=== PATIENT | male | born 1990 | race Caucasian/White ===

== ENCOUNTER 2023-04-10 14:51 | Outpatient (REF) | payer OTHER, SELFPAY ==
[2023-04-10 16:16] LABS: Influenza A PCR NEGATIVE (Negative); Influenza B PCR NEGATIVE (Negative); Resp Syncy Virus RNA Qual PCR NEGATIVE (Negative); SARS COV2 PCR INHOUSE NEGATIVE (Negative)
== END 2023-04-10 14:52 | disposition home or self-care (01) ==
LOC: HO.LAB 14:51
PROVIDERS: Visit Provider Physician Assistant Medical
DX: R05.9 Cough, unspecified (principal); Z20.822 Contact with and (suspected) exposure to COVID-19
CPT/HCPCS: 0241U

== ENCOUNTER 2024-01-29 08:28 | Outpatient (REF) | payer BC, SELFPAY ==
[2024-01-29 10:01] LABS: Syphilis Screen Nonreactive (Nonreactive)
[2024-01-29 10:06] LABS: HBS Num1 410.65 mIU/mL (0-7.99); HBc Num1 0.14 S/CO (0.00-0.79); HBsAGNum1 0.34 S/CO (0.00-0.99); HIV AB/AG Nonreactive (Nonreactive); HIV Num 1 0.05 S/CO (0.00-0.99); Hepatitis A Antibody IgM 0.17 Index (0-0.79); Hepatitis B Core Antibody Nonreactive (Nonreactive); Hepatitis B Surface Antigen Negative (Negative); ~HepC Num1 0.14 S/CO (0.00-0.79); ~Hepatitis A Antibody IgM Nonreactive (Nonreactive); ~Hepatitis B Surface Antibody REACTIVE (Nonreactive); ~Hepatitis C Antibody Nonreactive (Nonreactive)
[2024-01-29 13:44] LABS: CT PCR NOT DETECTED (Not Detect.); NG PCR NOT DETECTED (Not Detect.)
== END 2024-01-29 08:29 | disposition home or self-care (01) ==
LOC: HO.LAB 08:28
PROVIDERS: PCP Internal Medicine; Visit Provider Internal Medicine
DX: Z20.2 Contact with and (suspected) exposure to infections with a predominantly sexual mode of transmission (principal)
CPT/HCPCS: 0353U; 86704; 86706; 86709; 86780; 86803; 87340; 87389

== ENCOUNTER 2024-03-06 10:52 | Outpatient (AMB) | payer BC, SELFPAY ==
[2024-03-06 10:54] VITALS: BP 130/68; BMI 24.1
--- NOTE | 2024-03-06 10:54 | MHC.PC.OV ---
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 He denies any chest pain or shortness of breath. No fever or cough. [facility] History (Updated 03/06/24 @ 11:17 by Mei Ryan MD) Lumbar pain MAYTE (generalized anxiety disorder) Seborrheic dermatitis of scalp Ear pain Surgical History No pertinent past surgical history Family History Mother Essential hypertension Father No problems noted. Social History Housing: House Alcohol intake: current Alcohol intake frequency: a few times a month Alcohol type: beer, wine and hard liquor Patient Tobacco Use Status: Never used Tobacco e-Cigarette/Vaping Use: Never Used Second Hand Smoke Exposure: No service: No Current occupational status: employed Current occupational exposures/hazards: No Cognitive needs: No Hearing needs: No Vision needs: Yes Questionnaire PHQ-9 Over the last 2 weeks, how often have you been bothered by any of the following problems? 1. Little interest or pleasure in doing things: not at all 2. Feeling down, depressed, or hopeless: not at all 3. Trouble falling or staying asleep, or sleeping too much: not at all 4. Feeling tired or having little energy: not at all 5. Poor appetite or overeating: not at all 6. Feeling bad about yourself - or that you are a failure or have let yourself or your family down: not at all 7. Trouble concentrating on things, such as reading the newspaper or watching television: not at all 8. Moving or speaking so slowly that other people could have noticed. Or the opposite - being so fidgety or restless that you have been moving around a lot more than usual: not at all 9. Thoughts that you would be better off or of hurting yourself in some way: not at all Total score: 0 Depression Screening Interpretation: Negative Depression Screening Done: Yes 69591 - PHQ-9 Billing: Yes Source: Developed by Drs. Rakesh Cerrato, Arleth Lowe, Juan Jose Yun and colleagues, with an educational sondra from [employer]. Thrive Questionnaire Date Thrive assessed: 03/06/24 I am a: Patient What is your living situation today?: I have a steady place to live Within the past 12 months, did the food you bought not last and you didn't have the money to get more?: Never true Within the past 12 months, did you worry whether your food would run out before you got money to buy more?: Never true Do you have trouble paying for medicines?: No Do you have trouble getting transportation to medical appointments?: No Do you have trouble paying your heating and electricity bill?: No Do you have trouble taking care of your child, family member or friend?: No Do you have trouble with day-to-day activities such as bathing, preparing meals, shopping, managing finances, etc.?: No Are you currently unemployed and looking for a job?: No Are you interested in more education?: No Please select the resources that you would like help with: None Currently or been in a relationship where the following occur: no concerns reported THRIVE Score: 0 AUDIT C Alcohol Use Questionnaire (AUDIT-C) 1. How often do you have a drink containing alcohol?: Monthly or less 2. How many drinks containing alcohol do you have on a typical day when you are drinking?: 1 or 2 3. How often do you have six or more drinks on one occasion?: Never Total Score: 1 MAYTE-7 AMB Questionnaire MAYTE-7 Date MAYTE - 7 assessed: 03/06/24 Feeling nervous, anxious, or on edge: 0 = Not at all Not being able to stop or control worryin = Not at all Worrying too much about different things: 0 = Not at all Trouble relaxin = Not at all Being so restless that it is hard to sit still: 0 = Not at all Becoming easily annoyed or irritable: 0 = Not at all Feeling afraid as if something awful might happen: 0 = Not at all Total MAYTE-7 score (0-4 normal; 5-9 mild; 10-14 moderate; 15-21 severe): 0 Source: Developed by Drs. Rakesh Cerrato, Arleth Lowe, Juan Jose Yun and colleagues, with an educational sondra from [employer]. MAYTE-7 Assessment Billing MAYTE-7 Assessment Tool: MAYTE-7 Assessment 54697 Review of Systems Const All systems reviewed & are unremarkable except as noted in HPI and below Eyes Reports no additional complaints, Denies change in vision and Denies other visual disturbances Card Denies chest pain at rest, Denies chest pain with activity, Denies edema, Denies irregular heart rhythm, Denies claudication, Denies dyspnea, Denies dyspnea on exertion, Denies orthopnea, Denies paroxysmal nocturnal dyspnea and Denies slow heart rate Resp Denies cough, Denies dyspnea and Denies dyspnea on exertion Physical exam (Primary Care) Vital Signs: Last Vital Signs BP 130/68 03/06/24 10:54 BMI result Body Mass Index 24.1 Tobacco/Smoking Status: Tobacco use Status Tobacco use date assessed 03/06/24 03/06/24 11:00 Patient Tobacco Use Status Never used Tobacco 03/06/24 11:00 e-Cigarette/Vaping Use Never Used 03/06/24 11:00 PHQ-9: PHQ-9 Score PHQ-9: Total score 0 03/06/24 11:00 Depression Screening Interpretation: Negative Thrive Assessment: Date of Thrive Assessment Date Thrive assessed 03/06/24 03/06/24 11:00 Currently or been in a relationship where the following occur: no concerns reported Const Orientation/consciousness: patient oriented x3 HENMT Head: Yes normal to inspection, Yes normocephalic and Yes atraumatic Ears: external ears normal Eyes General: appearance normal, both eyes and all related structures Eyelids: Yes eyelids normal Conjunctivae: conjunctivae normal Neck Neck: Yes normal visual inspection and Yes supple Resp Effort & Inspection: normal respiratory effort Auscultation: clear to auscultation bilaterally Cardio Jugular venous distension: no JVD Rate: regular rate Rhythm: regular rhythm Heart sounds: S1 normal heart sound present and S2 normal heart sound present GI Inspection: Yes normal to inspection Palpation (GI): Soft to palpation and nontender Auscultation: normal bowel sounds Skin General skin exam: no rashes or lesions noted Neuro General: patient oriented x3 and no focal motor deficits Extrem General: Yes full ROM Psych Appearance: grossly normal Assessment and Plan Assessment & Plan (1) Physical exam: Code(s): Z00.00 - Encounter for general adult medical examination without abnormal findings Plan: Repeat in a year. Orders: Orders T Spot TB Today Z11.1 - Encounter for screening for respiratory tuberculosis Lipid Panel Today Z00.00 - Encounter for general adult medical examination without abnormal findings Rubella IgG Antibody Today Z23 - Encounter for immunization Comprehensive [place]. Panel Fast Today Z00.00 - Encounter for general adult medical examination without abnormal findings Mumps Virus IgG Antibody Today Z23 - Encounter for immunization Rubeola IgG (Measles) Today Z23 - Encounter for immunization Coding Level of Care Code Est Pt Prev Care 18-39y(60921) Diagnoses Physical exam Z00.00 Additional Codes MAYTE-7 Assessment Billing - MAYTE-7 Assessment Tool: MAYTE-7 Assessment 72317 ([id number]) Time Spent (min) 30
== END 2024-03-06 11:25 | disposition home or self-care (01) ==
PROVIDERS: PCP Internal Medicine; Visit Provider Internal Medicine
DX: Z00.00 Encounter for general adult medical examination without abnormal findings (principal)
CPT/HCPCS: 99395

== ENCOUNTER 2024-03-07 09:44 | Outpatient (REF) | payer BC, SELFPAY ==
[2024-03-07 11:05] LABS: Alanine Aminotransferase 20 U/L (0-40); Albumin Level 4.2 g/dL (3.5-5.0); Alkaline Phosphatase 58 U/L (39-117); Anion Gap 12 (12-20); Aspartate Amino Transferase 21 U/L (5-37); Bilirubin Total 0.8 mg/dL (0.0-1.0); Blood Urea Nitrogen 13 mg/dL (9-16); Calcium 9.5 mg/dL (8.4-10.2); Carbon Dioxide 27 mmol/L (22-29); Chloride 104 mmol/L (96-108); Cholesterol 206 mg/dL (<200); Estimated Glomerular Filt Rate > 60; Glucose Fasting 97 mg/dL (60-99); HDL Cholesterol 47 mg/dL (>40); LDL Cholesterol Calculated 133 mg/dL (<100); Potassium 4.2 mmol/L (3.3-5.1); Sodium 139 mmol/L (135-145); Total Protein 7.4 g/dL (6.5-8.0); Triglycerides 132 mg/dL (<150)
[2024-03-08 10:48] LABS: Rubeola IgG (Measles) <13.50 AU/mL
[2024-03-08 10:54] LABS: Rubella IgG Antibody 1.68 Index
[2024-03-09 22:39] LABS: TS Negative Control Passed; TS Panel A 0; TS Panel B 0; TS Positive Control Passed; TSpotTB Negative (Negative)
== END 2024-03-07 09:45 | disposition home or self-care (01) ==
LOC: HO.LAB 09:44
PROVIDERS: PCP Internal Medicine; Visit Provider Internal Medicine
DX: Z00.00 Encounter for general adult medical examination without abnormal findings (principal); Z11.1 Encounter for screening for respiratory tuberculosis; Z13.6 Encounter for screening for cardiovascular disorders
CPT/HCPCS: 36415; 80053; 80061; 86481; 86735; 86762; 86765

== ENCOUNTER 2024-03-15 14:48 | Outpatient (AMB) | payer BC, SELFPAY ==
--- NOTE | 2024-03-15 15:08 | AM.OFFVISNUR ---
Intake Intake Visit Reasons: MMR Allergies No Known Allergies Allergy (Verified 03/06/24 11:07) Immunizations M-M-R II (PF) 1,000-12,500 TCID50/0.5 mL subcutaneous solution Performing Provider: Mei Ryan MD Performing Location: [facility] Administered by: Miriam Noriega RN on 03/15/24 15:24 Dose Route Admin Location Dispensed Lot Number Expiration Date NDC Lead Project Manager 0.5 mL subcut Left Arm 0.5 mL [id number] 02/02/25 7152-4325-79 [employer] D VIS Given Date VIS Provided VIS Publication Date 03/15/24 Single Vaccine 21 Eligibility Eligibility Date Funding Source Not [facility] Eligible 03/15/24 Private Coding Assessment & Plan Assessment & Plan Orders: Orders MMR Immunization Today Z23 - Encounter for immunization Medications: New M-M-R II (PF) (measles,mumps,rubella vacc(PF)) 0.5 mL subcut ONCE 1 ea 0RF NS Z23 - Encounter for immunization
== END 2024-03-15 15:23 | disposition home or self-care (01) ==
PROVIDERS: PCP Internal Medicine; Visit Provider Internal Medicine
DX: Z23 Encounter for immunization (principal)
CPT/HCPCS: 90471; 90707

== ENCOUNTER 2024-04-20 14:21 | Outpatient (AMB) | payer BC, SELFPAY ==
--- NOTE | 2024-04-20 14:55 | AM.OFFVISNUR ---
Intake Intake Visit Reasons: MMR Allergies No Known Allergies Allergy (Verified 03/06/24 11:07) Immunizations M-M-R II (PF) 1,000-12,500 TCID50/0.5 mL subcutaneous solution Performing Provider: Mei Ryan MD Performing Location: [facility] Administered by: Venecia Cole RN on 04/20/24 14:56 Dose Route Admin Location Dispensed Lot Number Expiration Date NDC Taxi Proprietor 0.5 mL subcut Left Arm 0.5 mL [id number] 02/02/25 7481-7068-64 [employer] D VIS Given Date VIS Provided VIS Publication Date 04/20/24 Single Vaccine 21 Eligibility Eligibility Date Funding Source Not [facility] Eligible 04/20/24 Private Coding Assessment & Plan Assessment & Plan Orders: Orders MMR Immunization Today Z23 - Encounter for immunization Medications: New M-M-R II (PF) (measles,mumps,rubella vacc(PF)) 0.5 mL subcut ONCE 1 ea 0RF NS Z23 - Encounter for immunization
== END 2024-04-20 15:16 | disposition home or self-care (01) ==
PROVIDERS: PCP Internal Medicine; Visit Provider Internal Medicine
DX: Z23 Encounter for immunization (principal)
CPT/HCPCS: 90471; 90707

== ENCOUNTER 2024-08-21 15:01 | Outpatient (AMB) | payer BC, SELFPAY ==
--- NOTE | 2024-08-21 15:32 | AM.OFFWIN_ITS ---
Intake Vital Signs 08/21/24 15:34 Height 5 ft 9 in Weight 175 lb 4 oz BMI 25.9 BP 102/78 Blood Pressure Location Rt brachial Position Sitting Pulse 78 Pulse Source Pulse Oximeter Pulse Oximetry (%) 98 Oxygen Delivery Method Room Air Intake Visit Reasons: EP Feels pain on his mid thoracic spine Intake Note: Patient is here today for work injury visit complaint of pain in left hip. 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 While every effort has been made to ensure accuracy, pick up and delivery driver errors may have been included. The patient is a 33 year old male who presents to the clinic today with Left lower back pain since today at work. He reports that he was looking in the bucket for a tool, and when he went to sit up and stand up he felt pain in his left lower back. He denies numbness and tingling in his leg, the walking. He does note that the pain is worse if he is going from sitting to standing. He did not take anything to help the pain. He has not had any previous back injury or surgery. REPLACED BY [facility] Medical History Lumbar pain MAYTE (generalized anxiety disorder) Seborrheic dermatitis of scalp Ear pain Surgical History No pertinent past surgical history Family History Mother Essential hypertension Father No problems noted. Social History Housing: House Alcohol intake: current Alcohol intake frequency: a few times a month Alcohol type: beer, wine and hard liquor Patient Tobacco Use Status: Never used Tobacco e-Cigarette/Vaping Use: Never Used Second Hand Smoke Exposure: No service: No Current occupational status: employed Current occupational exposures/hazards: No Cognitive needs: No Hearing needs: No Vision needs: Yes Review of Systems Const All systems reviewed & are unremarkable except as noted in HPI and below Physical Exam Vital Signs: Last Vital Signs Pulse 78 08/21/24 15:34 BP 102/78 08/21/24 15:34 Pulse Ox 98 08/21/24 15:34 Oxygen Delivery Method Room Air 08/21/24 15:34 BMI result Body Mass Index 25.9 Const General: cooperative, healthy appearing, comfortable, no acute distress and alert Orientation/consciousness: patient oriented x3 Limitations: no limitations Resp Effort & Inspection: normal respiratory effort and able to speak in complete sentences Back/Spine/Pelvis Other: Left lumbar region tender to palpation, no increased muscle bulging. No pain over spine. Reduced flexion due to pain, lateral rotation normal. Distal neurovascular exam intact, negative SLR, negative well SLR. Skin General skin exam: no rashes or lesions noted, elasticity normal and turgor normal Neuro General: patient oriented x3 Extrem General: Yes normal to inspection, Yes full ROM, Yes capillary refill normal and Yes normal exam except as noted Psych Appearance: grossly normal Mental Status: mental status grossly normal Speech and movement: Normal speech and movement present Affect: normal affect Assessment & Plan Assessment & Plan (1) Low back pain: Code(s): M54.50 - Low back pain, unspecified Qualifiers: Chronicity: acute Back pain laterality: left Sciatica presence: without sciatica Qualified Code(s): M54.50 - Low back pain, unspecified Plan: Supportive measures encouraged and reviewed. Advised patient to try ibuprofen for anti-inflammatory effects as well as muscle relaxer for spasming muscle. Trial heat or ice. Letter provided for time off of work for 2 days to rest and due to concern for side effects of medication. Advised follow up with worsening or failure to resolve. Plan See above for full details and plan. Medications: New cyclobenzaprine 5 mg PO TID PRN 6 tabs 0RF muscle spasm ibuprofen 600 mg PO Q8H PRN 10 tabs 0RF pain Coding Level of Care Code Est Pt Level 3 (26801) Diagnoses Acute left-sided low back pain without sciatica M54.50 Chronicity: acute Back pain laterality: left Sciatica presence: without sciatica
[2024-08-21 15:34] VITALS: BP 102/78; PULSE 78; O2SAT 98; BMI 25.9
== END 2024-08-21 16:16 | disposition home or self-care (01) ==
PROVIDERS: PCP Internal Medicine; Visit Provider Registered Nurse
DX: M54.50 Low back pain, unspecified (principal)

== ENCOUNTER → 2024-08-21 15:01 | Outpatient (BNVA) | payer BC, SELFPAY | PROVIDERS: PCP Internal Medicine ==

== ENCOUNTER 2024-10-31 10:02 | Outpatient (AMB) | payer OTHER, BC, SELFPAY ==
[2024-10-31 11:05] VITALS: BP 118/80; PULSE 78; TEMP 36.6; O2SAT 98; BMI 25.7
--- NOTE | 2024-10-31 11:05 | MHC.OFFWIV ---
Intake Vital Signs 10/31/24 11:05 Height 5 ft 9 in Weight 174 lb BMI 25.7 BP 118/80 Blood Pressure Location Rt brachial Position Sitting Pulse 78 Pulse Source Pulse Oximeter Temp 97.9 F Temp Source Oral Pulse Oximetry (%) 98 Intake Visit Reasons: EP Back pain ~ WC Intake Note: pt is here for back pain, WC Patient Tobacco Use Status: Never used Tobacco Allergies No Known Allergies Allergy (Verified 10/31/24 11:05) Do you need a note to return to daycare/school/sports/work: Yes HPI HPI Comments History of Present Illness Details This is a 34-year-old male with no stated past medical history presenting for evaluation of back pain that started yesterday at work. 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 The patient states he opened a box of solar panels yesterday and they were sliding out of the box. Patient states he had to use his full body to hold the solar panels to prevent them from falling to the ground. Patient states that he had pain in his upper back that persists today. Patient states that he went to work this morning however twisting motions are most bothersome to him and he was asked to come for medical evaluation. Patient has not taken any medication for treatment of his discomfort. He denies having any chest pain, abdominal pain or low back pain. Pain is aching in nature and does not radiate into his shoulders or upper extremities. [facility] Medical History Lumbar pain MAYTE (generalized anxiety disorder) Seborrheic dermatitis of scalp Ear pain Surgical History No pertinent past surgical history Family History Mother Essential hypertension Father No problems noted. Social History Housing: House Alcohol intake: current Alcohol intake frequency: a few times a month Alcohol type: beer, wine and hard liquor Patient Tobacco Use Status: Never used Tobacco e-Cigarette/Vaping Use: Never Used Second Hand Smoke Exposure: No service: No Current occupational status: employed Current occupational exposures/hazards: No Cognitive needs: No Hearing needs: No Vision needs: Yes Review of Systems Const All systems reviewed & are unremarkable except as noted in HPI and below Denies chills and Denies fever(s) Eyes Reports no additional complaints ENT Reports no additional complaints Card Reports no additional complaints, Denies chest pain and Denies dyspnea Resp Denies dyspnea GI Reports no additional complaints Reports no additional complaints Musc Reports no additional complaints, Reports back pain and Denies radiating pain into limb Skin/Breast Reports system reviewed and no additional complaints, except as documented Neuro Reports no additional complaints Psych Reports no additional complaints Physical Exam Vital Signs: Last Vital Signs Temp 97.9 F 10/31/24 11:05 Pulse 78 10/31/24 11:05 BP 118/80 10/31/24 11:05 Pulse Ox 98 10/31/24 11:05 BMI result Body Mass Index 25.7 Const General: cooperative, healthy appearing, comfortable, no acute distress, well developed, alert, awake and Physically active; No lethargic Nutritional Appearance: average body habitus Orientation/consciousness: patient oriented x3 and No lethargic Limitations: no limitations Back/Spine/Pelvis Cervical Spine: No cervical muscular tenderness, No pain with cervical ROM and No Cervical spine tenderness Thoracic/Lumbar Spine: thoracic and lumbar spine normal to inspection, paraspinal muscle tenderness (upper thoracic/rhomboid musculature bilaterally) bilaterally, No thoracic spinal tenderness and No lumbar spinal tenderness Skin General skin exam: no rashes or lesions noted Neuro General: patient oriented x3 Extrem Other: Basic Sciences Professor strength is equal bilaterally, patient ambulating independently without ataxia Psych Appearance: grossly normal Mental Status: mental status grossly normal Insight: Good insight present (Psych) Judgement: Good judgement present (Psych) Assessment & Plan Assessment & Plan (1) Rhomboid muscle strain: Comment: Patient has no decreased strength in his upper extremities bilaterally. Patient will be treated with anti-inflammatories. Code(s): S29.012A - Strain of muscle and tendon of back wall of thorax, initial encounter Qualifiers: Encounter type: initial encounter Qualified Code(s): S29.012A - Strain of muscle and tendon of back wall of thorax, initial encounter Plan: Naprosyn 500 mg b.i.d. times 10 days; patient is placed on light duty for the remainder of this week. May return to full duty on WednesdayNovember 06. Medications: New naproxen (Naprosyn) 500 mg PO BID 20 tabs 0RF Coding Level of Care Code New Pt Level 3 (45785) Diagnoses Strain of rhomboid muscle, initial encounter S29.012A Encounter type: initial encounter
== END 2024-10-31 11:21 | disposition home or self-care (01) ==
PROVIDERS: PCP Internal Medicine; Visit Provider Physician Assistant
DX: S29.012A Strain of muscle and tendon of back wall of thorax, initial encounter (principal)

== ENCOUNTER → 2024-10-31 10:02 | Outpatient (BNVA) | payer OTHER, BC, SELFPAY | PROVIDERS: PCP Internal Medicine; Visit Provider Physician Assistant | DX: S29.012A Strain of muscle and tendon of back wall of thorax, initial encounter (principal); X58.XXXA Exposure to other specified factors, initial encounter; Y93.9 Activity, unspecified; Y92.9 Unspecified place or not applicable; Y99.9 Unspecified external cause status | CPT/HCPCS: 99202 ==

== ENCOUNTER 2025-03-13 07:28 | Outpatient (AMB) | payer BC, SELFPAY ==
--- NOTE | 2025-03-13 07:40 | A.OFFPC_ITS ---
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 Accompanied by: Self / Same As Patient Allergies No Known Allergies Allergy (Verified 03/13/25 07:48) Medication List - Last Reconciled 03/13/25 by Mei Ryan MD No Known Home Meds Tobacco use date assessed: 03/13/25 Dental Screening Dental Screen Date: 03/13/25 Did you have a dental visit in the last 12 months?: Yes Did you have a dental problem in the last 6 months where you did not have access to dental care?: No Was dental information given to patient?: Patient has dentist HPI HPI Comments History of Present Illness Details The patient is a 34-year-old male presenting for an annual physical exa mination. He has a history of hyperlipidemia, with previous lab results indicating mildly elevated cholesterol levels, which did not require medication. The patient has not altered his diet since those results. His weight has decreased from 174 to 165 pounds, partly due to occasional gym workouts and reduced alcohol intake. The patient also reports episodic lower back pain that occurs infrequently, most recently about seven months ago. The pain is localized to the lower back and does not radiate. An episode resulted from lifting at work, limiting his mobility temporarily. He manages these episodes with ice but seeks further evaluation. - Immunizations are up-to-date, with Tet anus, Diphtheria, and Pertussis (Tdap) vaccine administered in 2021. - Discussed the patient's cholesterol, w hich was slightly elevated from last screening. - Recommended repeat laboratory evaluati on including blood sugar, renal function, liver enzymes, and lipid profile. - Discussed maintaining a healthy body w eight through diet and exercise. PFSH Medical History Lumbar pain MAYTE (generalized anxiety disorder) Seborrheic dermatitis of scalp Ear pain Surgical History No pertinent past surgical history Family History Mother Essential hypertension Father No problems noted. Social History Housing: House Alcohol intake: current Alcohol intake frequency: a few times a month Alcohol type: beer, wine and hard liquor Patient Tobacco Use Status: Never used Tobacco e-Cigarette/Vaping Use: Never Used Second Hand Smoke Exposure: No service: No Current occupational status: employed Current occupational exposures/hazards: No Cognitive needs: No Hearing needs: No Vision needs: Yes Questionnaire PHQ-9 Over the last 2 weeks, how often have you been bothered by any of the following problems? 1. Little interest or pleasure in doing things: not at all 2. Feeling down, depressed, or hopeless: not at all 3. Trouble falling or staying asleep, or sleeping too much: not at all 4. Feeling tired or having little energy: not at all 5. Poor appetite or overeating: not at all 6. Feeling bad about yourself - or that you are a failure or have let yourself or your family down: not at all 7. Trouble concentrating on things, such as reading the newspaper or watching television: not at all 8. Moving or speaking so slowly that other people could have noticed. Or the opposite - being so fidgety or restless that you have been moving around a lot more than usual: not at all 9. Thoughts that you would be better off or of hurting yourself in some way: not at all Total score: 0 Depression Screening Interpretation: Negative Depression Screening Done: Yes 54395 - PHQ-9 Billing: Yes Source: Developed by Drs. Rakesh Cerrato, Arleth Lowe, Juan Jose Yun and colleagues, with an educational sondra from [employer]. Thrive Questionnaire Date Thrive assessed: 03/13/25 I am a: Patient What is your living situation today?: I have a steady place to live Within the past 12 months, did the food you bought not last and you didn't have the money to get more?: Never true Within the past 12 months, did you worry whether your food would run out before you got money to buy more?: Never true Do you have trouble paying for medicines?: Yes Do you have trouble getting transportation to medical appointments?: No Do you have trouble paying your heating and electricity bill?: No Do you have trouble taking care of your child, family member or friend?: No Do you have trouble with day-to-day activities such as bathing, preparing meals, shopping, managing finances, etc.?: No Are you currently unemployed and looking for a job?: No Are you interested in more education?: Yes Please select the resources that you would like help with: None Currently or been in a relationship where the following occur: No concerns reported THRIVE Score: 0 AUDIT C Alcohol Use Questionnaire (AUDIT-C) 1. How often do you have a drink containing alcohol?: Monthly or less 2. How many drinks containing alcohol do you have on a typical day when you are drinking?: 1 or 2 3. How often do you have six or more drinks on one occasion?: Never Total Score: 1 Score Reviewed/Action Taken: No MAYTE-7 AMB Questionnaire MAYTE-7 Date MAYTE - 7 assessed: 03/13/25 Feeling nervous, anxious, or on edge: 0 = Not at all Not being able to stop or control worryin = Not at all Worrying too much about different things: 0 = Not at all Trouble relaxin = Not at all Being so restless that it is hard to sit still: 0 = Not at all Becoming easily annoyed or irritable: 0 = Not at all Feeling afraid as if something awful might happen: 0 = Not at all Total MAYTE-7 score (0-4 normal; 5-9 mild; 10-14 moderate; 15-21 severe): 0 Source: Developed by Drs. Rakesh Cerrato, Arleth Lowe, Juan Jose Yun and colleagues, with an educational sondra from [employer]. MAYTE-7 Assessment Billing MAYTE-7 Assessment Tool: MAYTE-7 Assessment 08931 Review of Systems Const All systems reviewed & are unremarkable except as noted in HPI and below Card Denies chest pain at rest, Denies chest pain with activity, Denies edema, Denies irregular heart rhythm, Denies claudication, Denies dyspnea, Denies dyspnea on exertion, Denies orthopnea, Denies paroxysmal nocturnal dyspnea and Denies slow heart rate Resp Denies cough, Denies dyspnea and Denies dyspnea on exertion GI Denies abdominal pain, Denies change in bowel habits, Denies excessive flatus, Denies nausea and Denies vomiting Denies urinary hesitancy, Denies urinary incontinence and Denies urinary urgency Musc Denies abnormal gait, Denies atrophy, Denies deformity and Denies limited range of motion Skin/Breast Denies bleeding lesions, Denies changing lesions and Denies rash Neuro Denies abnormal gait, Denies behavioral changes and Denies lack of coordination Psych Denies behavioral changes Physical exam (Primary Care) Vital Signs: Last Vital Signs BP 110/78 03/13/25 07:42 BMI result Body Mass Index 24.4 Tobacco/Smoking Status: Tobacco use Status Tobacco use date assessed 03/13/25 03/13/25 07:46 Patient Tobacco Use Status Never used Tobacco 03/13/25 07:46 e-Cigarette/Vaping Use Never Used 03/13/25 07:46 PHQ-9: PHQ-9 Score PHQ-9: Total score 0 03/13/25 07:46 Depression Screening Interpretation: Negative Thrive Assessment: Date of Thrive Assessment Date Thrive assessed 03/13/25 03/13/25 07:46 Currently or been in a relationship where the following occur: No concerns reported HENSD Head: Yes normal to inspection, Yes normocephalic and Yes atraumatic Ears: external ears normal Eyes General: appearance normal, both eyes and all related structures Eyelids: Yes eyelids normal Conjunctivae: conjunctivae normal Neck Neck: Yes normal visual inspection and Yes supple Resp Effort & Inspection: normal respiratory effort Auscultation: clear to auscultation bilaterally Cardio Jugular venous distension: no JVD Rate: regular rate Rhythm: regular rhythm Heart sounds: S1 normal heart sound present and S2 normal heart sound present GI Inspection: Yes normal to inspection Palpation (GI): Soft to palpation and nontender Auscultation: normal bowel sounds Skin General skin exam: no rashes or lesions noted Neuro General: no focal motor deficits Extrem General: Yes full ROM Psych Appearance: grossly normal Coding Level of Care Code Est Pt Level 3 (40569) Est Pt Prev Care 18-39y([id number]) Diagnoses Physical exam Z00.00 Lumbar pain M54.50 Additional Codes PHQ-9 - 70722 - PHQ-9 Billing: Yes ([id number]) MAYTE-7 Assessment Billing - MAYTE-7 Assessment Tool: MAYTE-7 Assessment 66450 ([id number]) Time Spent (min) 32 Assessment & Plan Assessment & Plan (1) Physical exam: Code(s): Z00.00 - Encounter for general adult medical examination without abnormal findings Category: Medical (2) Lumbar pain: Code(s): M54.50 - Low back pain, unspecified Category: Medical Plan Repeat laboratory tests were advised to reevaluate cholesterol levels, acknowledging his familial cardiovascular risk. Given the intermittent lower angela k pain, we will proceed with radiographic imaging and a chiropractic referral. I encouraged lifestyle modifications to manage weight and prevent pain recurrence and recommended lifestyle adjustments like exercise and safe lifting techniques to alleviate symptoms. Patient was informed and verbally consented to the use of an ambient scribe for clinic note documentation during this visit. During our discussion, I reviewed the slight elevation in cholesterol and recommended repeating lab work to assess any changes. We also discussed options for managing his lower back pain, including chiropractic referrals and potential imaging to better understand the underlying issue. Emphasized the importance of continued exercise to support weight management and minimize back pain possibilities. Explained the risks and benefits associated with proposed diagnostics and interventions, ensuring informed consent was obtained for these recommendations. Orders: Orders Comprehensive [place]. Panel Fast Today Z00.00 - Encounter for general adult medical examination without abnormal findings Lipid Panel Today Z00.00 - Encounter for general adult medical examination without abnormal findings XR lumbar spine 2-3V Today M54.50 - Low back pain, unspecified Referrals Chiropractic Referral M54.50 - Low back pain, unspecified Patient Instructions: - Repeat lab tests for blood sugar, renal function, liver enzymes, and cholesterol. - Follow through with animal care service worker for lower back pain management. - Continue engaging in regular exercise to help maintain weight and improve overall health. - Use proper form and techniques when lifting to avoid back strain. - Attend follow-ups and report any new symptoms or concerns promptly.
[2025-03-13 07:42] VITALS: BP 110/78; BMI 24.4
== END 2025-03-13 07:59 | disposition home or self-care (01) ==
LOC: HO.HMCH 07:29
PROVIDERS: PCP Internal Medicine; Visit Provider Internal Medicine
DX: Z00.00 Encounter for general adult medical examination without abnormal findings (principal); M54.50 Low back pain, unspecified

== ENCOUNTER 2025-03-13 07:28 | Outpatient (REF) | payer BC, SELFPAY ==
--- NOTE | ~2025-03-13 | XR_ITS ---
EXAMINATION: XR LUMBOSACRAL SPINE CLINICAL INFORMATION: M54.50 - Low back pain, unspecified COMPARISON: None available. TECHNIQUE: Three views of the lumbosacral spine. FINDINGS: Endplate sclerosis and decreased intervertebral disc height at L5-S1. No acute cortical disruption or malalignment. Spina bifida occulta, S1. Mild levoconvex curvature apex at L3. XR/XR lumbar spine 2-3V IMPRESSION: Mild spondylosis L5-S1. Electronically signed by: Kin Villanueva MD 03/14/2025 07:40 AM EDT
[2025-03-13 10:02] LABS: Alanine Aminotransferase 34 U/L (0-40); Albumin Level 4.5 g/dL (3.5-5.0); Alkaline Phosphatase 61 U/L (39-117); Anion Gap 10 (12-20); Aspartate Amino Transferase 23 U/L (5-37); Bilirubin Total 0.6 mg/dL (0.0-1.0); Blood Urea Nitrogen 15 mg/dL (9-16); Calcium 9.5 mg/dL (8.4-10.2); Carbon Dioxide 29 mmol/L (22-29); Chloride 106 mmol/L (96-108); Cholesterol 201 mg/dL (<200); Estimated Glomerular Filt Rate > 60; Glucose Fasting 91 mg/dL (60-99); HDL Cholesterol 48 mg/dL (>40); LDL Cholesterol Calculated 131 mg/dL (<100); Potassium 4.3 mmol/L (3.3-5.1); Sodium 141 mmol/L (135-145); Total Protein 7.3 g/dL (6.5-8.0); Triglycerides 110 mg/dL (<150)
== END 2025-03-13 07:29 | disposition home or self-care (01) ==
LOC: HO.XRAY 07:28
PROVIDERS: PCP Internal Medicine; Visit Provider Internal Medicine
DX: Z00.00 Encounter for general adult medical examination without abnormal findings (principal); M54.50 Low back pain, unspecified; Z13.6 Encounter for screening for cardiovascular disorders
CPT/HCPCS: 36415; 72100; 80053; 80061; 96127

== ENCOUNTER → 2025-03-13 08:26 | Outpatient (BNV) | payer BC, SELFPAY | PROVIDERS: PCP Internal Medicine; Visit Provider Radiology Diagnostic Radiology | DX: M47.896 Other spondylosis, lumbar region (principal) | CPT/HCPCS: 72100 ==

== ENCOUNTER 2025-06-01 10:23 | Outpatient (AMB) | payer BC, SELFPAY ==
[2025-06-01 10:32] VITALS: BP 100/56; PULSE 75; TEMP 36.8; O2SAT 97; BMI 24.7
--- NOTE | 2025-06-01 10:32 | MHC.OFFWIV ---
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 - The pain began approximately two months ago and initially affected a different area before localizing to the current site. - The pain is exacerbated by walking and specific movements - The patient describes the pain as similar to previous back pain, with radiation down the buttocks. - There is no associated numbness, tingling, or weakness reported. - The patient has no history of bladder or bowel dysfunction. Physical Exam General: Cooperative, healthy appearing, comfortable, no acute distress and well developed Orientation: Patient oriented x3 Limitations: No limitations Head: Normal to inspection Ears: Hearing grossly normal bilaterally Nose: Normal External nose present Face and sinus: Normal facial exam Mouth: normal, moist oral mucosa Eyes: Appearance normal, both eyes and all related structures Neck: Normal visual inspection and Yes full ROM Respiratory: Normal respiratory effort and able to speak in complete sentences. Skin: no rashes or lesions noted Neuro: Patient oriented x3 Extremities: moving all extremities normally, + straight leg right side, - straight leg left side [facility] Medical History Lumbar pain MAYTE (generalized anxiety disorder) Seborrheic dermatitis of scalp Ear pain Surgical History No pertinent past surgical history Family History Mother Essential hypertension Father No problems noted. Social History Housing: House Alcohol intake: current Alcohol intake frequency: a few times a month Alcohol type: beer, wine and hard liquor Patient Tobacco Use Status: Never used Tobacco e-Cigarette/Vaping Use: Never Used Second Hand Smoke Exposure: No service: No Current occupational status: employed Current occupational exposures/hazards: No Cognitive needs: No Hearing needs: No Vision needs: Yes Review of Systems Const All systems reviewed & are unremarkable except as noted in HPI and below Physical Exam Vital Signs: Last Vital Signs Temp 98.3 F 06/01/25 10:32 Pulse 75 06/01/25 10:32 BP 100/56 L 06/01/25 10:32 Pulse Ox 97 06/01/25 10:32 Oxygen Delivery Method Room Air 06/01/25 10:32 BMI result Body Mass Index 24.7 Assessment & Plan Assessment & Plan (1) Acute low back pain with right-sided sciatica: Code(s): M54.41 - Lumbago with sciatica, right side Qualifiers: Back pain laterality: right Qualified Code(s): M54.41 - Lumbago with sciatica, right side Plan: Plan Patient was informed and verbally consented to the use of an ambient scribe for clinic note documentation during this visit 1. Sciatica - Prescribed prednisone 40 mg daily for five days to reduce inflammation. - Advised to perform specific stretches to alleviate symptoms, with resources recommended from [facility]. - No imaging or further diagnostic tests were deemed necessary at this time. - Patient advised to monitor symptoms and return if no improvement or worsening occurs. Medications: New prednisone 40 mg (2 x 20 mg) PO QAM 10 tabs 0RF Coding Level of Care Code Est Pt Level 3 (52868) Diagnoses Acute right-sided low back pain with right-sided sciatica M54.41 Back pain laterality: right
== END 2025-06-01 11:13 | disposition home or self-care (01) ==
PROVIDERS: PCP Internal Medicine; Visit Provider Physician Assistant
DX: M54.41 Lumbago with sciatica, right side (principal)